=== PATIENT | female | born 1965 | race African-American/Black ===

== ENCOUNTER 2019-03-23 22:51 | Emergency (ER) | payer OTHER, MEDICAID ==
[~2019-03-23] VITALS: Ht 157.5 cm; Wt 87.5 kg
[~2019-03-23 22:51] MED LIST: BACTRIM DS TAB1 EAC1 PO; CETIRIZINE HCL5 MG PO; IRBESARTAN-HCT1 EACH PO; LOMAIRA8 MG PO; METFORMIN HCL500 MG PO; WELLBUTRIN 100100 MG PO; ZANTAC 150MG T150 MG PO
[2019-03-23 22:57] VITALS: BP 166/99
[2019-03-23] MEDS ORDERED: FLEXERIL PO (23:06)
[2019-03-23] MEDS ORDERED: ZIPSOR25 MG PO (23:07)
[2019-03-23] MEDS ORDERED: PREDNISONE50 MG PO ×2 (23:07→23:08)
[2019-03-23] MEDS ORDERED: NORCO 5-325 TA1 EAC1 PO ×2 (23:07→23:08)
== END 2019-03-23 23:26 | disposition home or self-care (01) ==
LOC: M.ERS 22:51
DX: M54.42 Lumbago with sciatica, left side (principal); I10 Essential (primary) hypertension; Z88.0 Allergy status to penicillin; Z88.8 Allergy status to other drugs, medicaments and biological substances

== ENCOUNTER 2019-04-02 20:08 | Emergency (ER) | payer OTHER, MEDICAID ==
[~2019-04-02] VITALS: Ht 157.5 cm; Wt 89.4 kg
[~2019-04-02 20:08] MED LIST changes: +FLEXERIL PO; +NORCO 5-325 TA1 EAC1 PO; +PREDNISONE50 MG PO; +ZIPSOR25 MG PO
[2019-04-02] MEDS ORDERED: PREDNISONE50 MG PO (21:55)
[2019-04-02 22:19] VITALS: BP 130/80
== END 2019-04-02 22:48 | disposition home or self-care (01) ==
LOC: M.ERS 20:08
DX: M54.32 Sciatica, left side (principal); I10 Essential (primary) hypertension; Z88.0 Allergy status to penicillin; Z88.8 Allergy status to other drugs, medicaments and biological substances

== ENCOUNTER 2020-02-02 14:42 | Emergency (ER) | payer OTHER, MEDICAID ==
[~2020-02-02] VITALS: Ht 157.5 cm; Wt 99.8 kg
[2020-02-02] MEDS ORDERED: FLONASE 0.05%50 MCG NARES (15:00)
[2020-02-02] MEDS ORDERED: DULOXETINE HCL30 MG PO (15:01)
[2020-02-02] MEDS ORDERED: AMITRIPTYLINE H25 M2 PO (15:01)
[2020-02-02] MEDS ORDERED: PHENTERMINE H37.5 MG PO (15:01)
[2020-02-02] MEDS ORDERED: LOSARTAN-HCTZ1 EAC3 PO (15:02)
[2020-02-02] MEDS ORDERED: TIZANIDINE HCL2 M1 PO (15:02)
[2020-02-02] MEDS ORDERED: NORCO 5-325 TA1 EAC2 PO (16:51)
[2020-02-02] MEDS ORDERED: FLEXERIL PO (16:51)
[2020-02-02 17:00] VITALS: BP 142/89
== END 2020-02-02 17:00 | disposition home or self-care (01) ==
LOC: M.ERS 14:42
DX: M25.531 Pain in right wrist (principal); M25.532 Pain in left wrist; M25.572 Pain in left ankle and joints of left foot; M25.552 Pain in left hip; M25.562 Pain in left knee; M54.6 Pain in thoracic spine; M54.5 Low back pain; M79.652 Pain in left thigh; I10 Essential (primary) hypertension; F41.9 Anxiety disorder, unspecified; Z88.0 Allergy status to penicillin; Z88.8 Allergy status to other drugs, medicaments and biological substances; V49.59XA Passenger injured in collision with other motor vehicles in traffic accident, initial encounter; Y93.89 Activity, other specified; Y92.488 Other paved roadways as the place of occurrence of the external cause; Y99.8 Other external cause status